=== PATIENT | female | born 1995 | race Caucasian/White ===

== ENCOUNTER 2021-06-18 06:51 | Emergency (ER) | payer BC ==
[~2021-06-18] VITALS: Ht 165.1 cm; Wt 102.1 kg
[2021-06-18] MEDS ORDERED: PRED50TA PO (07:17)
[2021-06-18 07:25] VITALS: BP 124/88
--- NOTE | 2021-06-18 07:26 | NUR ---
no OBVIOUS DISTRESS/ACUTE CHANGES Patient discharged to home in stable condition. Written and verbal after care instructions given. Patient verbalizes understanding of instruction.
== END 2021-06-18 07:35 | disposition home or self-care (01) ==
LOC: ER 06:51 → EDBD 06:51 → ER 07:35
DX: J45.909 Unspecified asthma, uncomplicated (principal); Z85.6 Personal history of leukemia; Z79.899 Other long term (current) drug therapy